=== PATIENT | female | born 1945 | race Caucasian/White ===

== ENCOUNTER 2018-10-27 05:35 | Day surgery (SDC) | payer OTHER ==
[2018-10-25 15:42] VITALS: BMI 29.8
[2018-10-27] MEDS ORDERED: MIDAZOLAM HCL 2 MG/2 ML SINGLE DOSE VIAL ONE (12:25)
[2018-10-27] MEDS ORDERED: PROPOFOL 20 ML ONE (12:25)
[2018-10-27] MEDS ORDERED: LIDOCAINE HCL/PF 2% SDV 5ML VIAL ONE (12:28)
[2018-10-27] MEDS ORDERED: ceFAZolin SODIUM 1 GM VIAL ONE (12:39)
[2018-10-27] MEDS ORDERED: SODIUM CHLORIDE 0.9% P/F 10 ML VIAL IJ ONE (12:39)
[2018-10-27] MEDS ORDERED: ceFAZolin SODIUM 1 GM VIAL IVPB ONE (12:42)
[2018-10-27] MEDS ORDERED: DEXAMETHASONE SOD PHOSPHATE 4 MG/1 ML VIAL ONE (12:45)
[2018-10-27] MEDS ORDERED: oxyCODONE HCL 5 MG TABLET PO PRN (13:10)
[2018-10-27] MEDS ORDERED: PROMETHAZINE HCL 25 MG/1 ML VIAL IVPB PRN (13:11)
[2018-10-27] MEDS ORDERED: ONDANSETRON 4 MG/2 ML VIAL IVPUSH PRN (13:11)
--- NOTE | 2018-10-27 13:12 | OP ---
Operative Note - Note: Operative Date: 10/27/18 Pre-Operative Diagnosis: bladder tumor Operation: TURBT Post-Operative Diagnosis: Same as Pre-op Surgeon: Juan Galvin Anesthesia: General Specimens Removed: bladder tumor Drains & Tubes with Location: 20fr perry Operative Report Dictated: Yes
[2018-10-27] MEDS ORDERED: DEXTROSE 5%-0.45% SALINE 1,000 ML IV SCH (13:15)
[2018-10-27] MEDS ORDERED: LACTATED RINGERS SOLUTION 1,000 ML IV SCH (13:15)
--- NOTE | 2018-10-27 13:38 | OP ---
DATE OF OPERATION: 10/27/2018 PREOPERATIVE DIAGNOSIS: Bladder tumor. POSTOPERATIVE DIAGNOSIS: Bladder tumor. PROCEDURE: Transurethral resection of bladder tumor. SURGEON: Rebecca Jenkins MD INDICATION: Patient is a 73-year-old female noted to have a left-sided bladder tumor and noted on office cystoscopy for workup of hematuria. This was confirmed with CAT scan. She is taken to the OR for resection. Risks, benefits, and alternatives discussed. After informed consent was obtained, patient was taken to the OR, placed supine on the table. After cardiac monitoring had been administered, general anesthesia was then established. She was prepped and draped in dorsal lithotomy position. The resectoscope with the visual obturator was inserted into the urethra and into the bladder without difficulty. A medium-size papillary tumor seen overlying the left side of the bladder at the trigone and engulfing the left ureteral orifice. This tumor, then using bipolar cautery, was resected in its entirety, and the specimen sent to Pathology for analysis. The base of the tumor was fulgurated. Care was taken to minimize the amount of fulguration around the ureteral orifice to minimize scar formation. At the end of the procedure, efflux was seen from the left ureteral orifice as well as the right. No other tumors were noted. All the tumor chips were removed with the Truverisik evacuator, sent to Pathology for analysis. Resectoscope was then removed, and a 20-[place] Guthrie was then placed to straight drainage. [place]-tinged urine retrieved. Patient was then awoken from anesthesia and transferred to recovery room in stable condition. There were no complications. Estimated blood loss: Minimal. REBECCA JENKINS M.D. [id number]
[2018-10-27 16:10] VITALS: BP 117/60; PULSE 78; TEMP 97.9
--- NOTE | 2018-10-28 16:13 | PATH ---
Surgical Pathology Report Patient Name: AMANDO BADILLO [facility]. Rec. #: [id number] /Age/Gender: 1945 (Age: 73) / F Account: [id number] Location: [facility] Taken: 10/27/2018 Received: 10/27/2018 Reported: 10/28/2018 Physicians: Juan Galvin M.D. Specimen(s) Received BLADDER TUMOR Clinical History Bladder mass Final Diagnosis BLADDER TUMOR, TRANSURETHRAL RESECTION OF BLADDER TUMOR: LOW GRADE PAPILLARY UROTHELIAL CARCINOMA, NON- INVASIVE. NO MUSCULARIS PROPRIA IDENTIFIED. NO FLAT CARCINOMA IN SITU (CIS) IDENTIFIED. Comment: Findings discussed with Dr. Aponte. Electronically Signed Ariane See M.D. Gross Description Received in formalin labeled "bladder tumor," is a 2.3 x 1.7 x 0.3 cm aggregate of hung pink soft tissue fragments. The formalin is filtered and the specimen is entirely submitted in one cassette. /10/27/2018 saudi10/27/2018
== END 2018-10-27 16:30 | disposition home or self-care (01) ==
LOC: JASU-SURG 05:35
PROVIDERS: ATTEND Urology
PROC: 0T5B8ZZ Destruction of Bladder, Via Natural or Artificial Opening Endoscopic (ICD-10-PCS; principal; 2018-10-27 12:00)
DX: C67.9 Malignant neoplasm of bladder, unspecified (principal)
CPT/HCPCS: 88305-TC; 94760

== ENCOUNTER 2020-06-27 12:49 | Emergency (ER) | payer OTHER ==
[2020-06-27 12:56] VITALS: BP 142/60; PULSE 78; TEMP 97.8; BMI 29.5
--- NOTE | 2020-06-27 13:35 | PDOC ---
History of Present Illness - General Chief Complaint: Wound Stated Complaint: SENT BY DOC Time Seen by Provider: 06/27/20 13:35 History Source: Patient Exam Limitations: No Limitations - History of Present Illness Initial Comments: 75 year old female with PMH bladder cancer (underwent bladder cancer scrapping by Dr. Landry x10 days ago) presented to ED for right arm swelling, redness, pain x8 days. Pt reported a couple days after he procedure the site at which the IV line was inserted started to become red/warm/swollen. She reported it has continued, prompting her to see Dr. Patino, who advised she come to ED for evaluation. ROS General: denied fever, chills, generalized weakness. HEENT: denied sore throat, rhinorrhea, ear pain. Cardiovascular: denied chest pain, palpitations, syncope, diaphoresis. Respiratory: denied shortness of breath, cough, sputum production, hemoptysis. Gastrointestinal: denied abdominal pain, nausea, vomiting, diarrhea, constipation, blood in stool. Genitourinary: denied dysuria, increased urinary frequency, hematuria, urinary incontinence, flank pain. Back: denied back pain. Musculoskeletal: admitted to arm pain/swelling. Neurological: denied headache, dizziness, numbness, tingling, weakness. Integumentary: admitted to erythema, warmth. denied rash, laceration, abrasion. Hematologic/Lymphatic: denied bruising or bleeding. PE Constitutional: Well-nourished, Well-developed, appearing stated age. HEENT: head is normocephalic, atraumatic. EOMI. PERRLA. Neck: supple. Full ROM. Cardiovascular: regular heart rhythm. Normal S1 and S2. no murmurs. no pericardial friction rub. Respiratory: clear to auscultation bilaterally. no crackles, rhonchi or wheezing. no stridor. Gastrointestinal: soft, flat, nontender. normal bowel sounds. no rebound, guarding, or masses. Extremities: right arm displays swelling & warmth to the peripheral pulses intact and equal. no lower extremity edema noted. Neurological: CN 2-12 grossly intact. moves all four extremities. Psych: awake, alert, oriented x3. follows commands. answers questions appropriately. Past History - Medical History Allergies/Adverse Reactions: Allergies Allergy/AdvReac Type Severity Reaction Status Date / Time Sulfa (Sulfonamide Allergy Verified 06/27/20 12:50 Antibiotics) Home Medications: Ambulatory Orders Amlodipine Besylate [Norvasc -] 10 mg PO DAILY 10/25/18 Metoprolol Succinate 50 mg PO DAILY 10/25/18 Simvastatin 10 mg PO DAILY 10/25/18 Cephalexin [Keflex] 500 mg PO QID 5 Days #20 capsule 06/27/20 Phenazopyridine HCl [Pyridium -] 200 mg PO ASDIR 06/27/20 - Psycho-Social/Smoking History Smoking History: Never smoked Have you smoked in the past 12 months: No - Substance Abuse Hx (Audit-C & DAST Scrn) How often the patient has a drink containing alcohol: Never Score: In Men: 4 or > Positive; In Women: 3 or > Positive: 0 Screen Result (Pos requires Nsg. Audit-10AR): Negative In the last yr the pt used illegal drug/Rx for NonMed reason: No Score: Yes response is considered Positive: 0 Screen Result (Positive result requires Nsg. DAST-10): Negative *Physical Exam - Vital Signs Last Vital Signs Temp Pulse Resp BP Pulse Ox 97.8 F 78 18 142/60 99 06/27/20 12:53 06/27/20 12:53 06/27/20 12:53 06/27/20 12:53 06/27/20 12:53 ED Treatment Course - LABORATORY CBC & Chemistry Diagram: 06/27/20 14:20 06/27/20 14:20 Discharge - Discharge Information Problems reviewed: Yes Clinical Impression/Diagnosis: Cellulitis, Redness and swelling of upper arm Condition: Stable - Admission No - Additional Discharge Information Prescriptions: Cephalexin [Keflex] 500 mg PO QID 5 Days #20 capsule - Follow up/Referral Referrals: Irineo Robins MD [Primary Care Provider] - - Patient Discharge Instructions Patient Printed Discharge Instructions: DI for Cellulitis -- Adult Additional Instructions: Follow up with your primary care doctor on Wednesday. Your care is not complete until you follow up. Bring all paperwork given to you today to your appointment. I have prescribed you an antibiotic to take for your skin infection, take as advised on label. Do not stop early even if you are feeling better. Return to the ER immediately if the red/swollen area is increasing, you have fevers/chills/sweats, chest pain, shortness of breath, nausea, vomiting, or any other new, worsening or concerning symptoms. Drink lots of water. - Post Discharge Activity
--- NOTE | 2020-06-27 14:28 | PDOC ---
Attending Attestation - Resident Resident Name: Mikki Hansen - ED Attending Attestation I have performed the following: I have examined & evaluated the patient, The case was reviewed & discussed with the resident, I agree w/resident's findings & plan, Exceptions are as noted - HPI HPI: 06/27/20 14:24 75y F Discharge - Follow up/Referral Referrals: Irineo Robins MD [Primary Care Provider] - - Patient Discharge Instructions - Post Discharge Activity
[2020-06-27 14:55] LABS: BASO % 0.4 % (0-2.0); HEMATOCRIT 44.8 % (32.4-45.2); HEMOGLOBIN 14.5 GM/dL (10.7-15.3); MCH 30.3 pg (25.7-33.7); MCHC 32.3 g/dl (32.0-36.0); MEAN CELL VOLUME 93.8 fl (80-96); MEAN PLT VOLUME 11.1 fl (7.5-11.1); NEUT % 66.6 % (42.8-82.8); PLATELET COUNT 206 K/MM3 (134-434); RBC 4.78 M/mm3 (3.60-5.2); RDW 13.7 % (11.6-15.6); WHITE BLOOD COUNT 8.8 K/mm3 (4.0-10.0)
[2020-06-27 15:02] LABS: INR 0.91 (0.83-1.09); PROTHROMBIN TIME (PATIENT) 10.7 SEC (9.7-13.0)
[2020-06-27 15:05] LABS: ACTIVATED PTT 30.6 SECONDS (25.2-36.5)
[2020-06-27] MEDS ORDERED: CEPHALEXIN MONOHYDRATE 500 MG CAPSULE (UD) PO ONE (15:10)
[2020-06-27 15:39] LABS: ALBUMIN 3.9 g/dl (3.4-5.0); BILIRUBIN,TOTAL 0.5 mg/dL (0.2-1); BLOOD UREA NITROGEN 15.3 mg/dL (7-18); CALCIUM 9.6 mg/dL (8.5-10.1); POTASSIUM 4.4 mmol/L (3.5-5.1); TOT PROT 7.6 g/dl (6.4-8.2)
--- NOTE | 2020-07-22 07:27 | PDOC ---
Documentation entered by Gavino Hadley SCRIBE, acting as scribe for Bg Garcia MD. Bg Garcia MD: This documentation has been prepared by the moibe, Gavino Hadley SCRIBE, under my direction and personally reviewed by me in its entirety. I confirm that the documentation accurately reflects all work, treatment, procedures, and medical decision making performed by me. Attending Attestation - Resident Resident Name: Mikki Hansen - ED Attending Attestation I have performed the following: I have examined & evaluated the patient, The case was reviewed & discussed with the resident, I agree w/resident's findings & plan, Exceptions are as noted - HPI HPI: 06/27/20 14:28 75y F hx of bladder ca sp bladder scraping approx 10 days ago, presents with R arm swelling x8d. Pt reports some redness several days after an IV was place in the area and was sent to the ED by her PMD for evaluation. Denies any other sympoms , Nausea, vomiting, generalized weakness, numbness, tingling, weakness. No discharge. She denies other symptoms including chest pain, shortness of breath, abdominal pain, leg swelling - Physicial Exam PE: 06/27/20 13:54 GENERAL: The patient is awake, alert, and fully oriented, Nontoxic - in no acute distress. RUE: noted for erythema/induration w/o flcutuance of medial aspec tof R elbow. midly warm to touch. - Medical Decision Making 06/27/20 15:05 ddx - cellulitis vs abscess will obtina blood work and soft tissue US abx will reassess, potential for out pt treatment 06/27/20 16:05 labs reviewed no leukocytosis no signs of collection on US will dc with abx for cellulitis outpt fu with PMD return precautions were discussed Discharge - Discharge Information Problems reviewed: Yes Clinical Impression/Diagnosis: Redness and swelling of upper arm Cellulitis Qualifiers: Site of cellulitis: extremity Site of cellulitis of extremity: upper extremity Laterality: right Qualified Code(s): L03.113 - Cellulitis of right upper limb Condition: Stable Disposition: HOME - Additional Discharge Information Prescriptions: Cephalexin [Keflex] 500 mg PO QID 5 Days #20 capsule - Follow up/Referral Referrals: Irineo Robins MD [Primary Care Provider] - - Patient Discharge Instructions Patient Printed Discharge Instructions: DI for Cellulitis -- Adult Additional Instructions: Follow up with your primary care doctor on Wednesday. Your care is not complete until you follow up. Bring all paperwork given to you today to your appointment. I have prescribed you an antibiotic to take for your skin infection, take as advised on label. Do not stop early even if you are feeling better. Return to the ER immediately if the red/swollen area is increasing, you have fevers/chills/sweats, chest pain, shortness of breath, nausea, vomiting, or any other new, worsening or concerning symptoms. Drink lots of water. - Post Discharge Activity
== END 2020-06-27 16:15 | disposition home or self-care (01) ==
LOC: SUPCPDRO 12:49 → JER 12:49
DX: L03.113 Cellulitis of right upper limb (principal)
CPT/HCPCS: 36415; 76882-TC-RT; 80053; 85025; 85610; 85730; 99285-25

== ENCOUNTER 2022-04-07 11:00 | Emergency (ER) | payer OTHER ==
[2022-04-07 11:14] VITALS: BMI 28.5
[2022-04-07] MEDS ORDERED: BEBTELOVIMAB (EUA) 175 MG/2 ML VIAL IVPUSH ONE (12:10)
[2022-04-07 14:22] VITALS: BP 113/62; PULSE 74; TEMP 98.3
== END 2022-04-07 14:30 | disposition home or self-care (01) ==
LOC: JCOVINFU 11:00
PROC: 3E033GC Introduction of Other Therapeutic Substance into Peripheral Vein, Percutaneous Approach (ICD-10-PCS; principal; 2022-04-07)
DX: U07.1 COVID-19 (principal)
CPT/HCPCS: 96374; 99284-25; M0222; Q0222

== ENCOUNTER 2022-09-22 15:43 | Emergency (ER) | payer OTHER ==
[2022-09-22 16:13] VITALS: BP 138/82; PULSE 87; RESP 16; TEMP 98.6; BMI 28.7
== END 2022-09-22 18:40 | disposition home or self-care (01) ==
LOC: FER 15:43
DX: M79.89 Other specified soft tissue disorders (principal)
CPT/HCPCS: 93971-TC; 99283-25

== ENCOUNTER 2023-03-03 04:17 | Day surgery (SDC) | payer OTHER ==
[2023-03-02 15:22] VITALS: BMI 30.4
[2023-03-03 08:42] VITALS: TEMP 97.5
[2023-03-03 09:43] VITALS: PULSE 67
[2023-03-03 09:51] VITALS: BP 139/68; RESP 17
== END 2023-03-03 09:43 | disposition home or self-care (01) ==
LOC: JASU-ENDO 04:17
PROVIDERS: ATTEND Internal Medicine Gastroenterology
PROC: 0DB68ZX Excision of Stomach, Via Natural or Artificial Opening Endoscopic, Diagnostic (ICD-10-PCS; 2023-03-03)
PROC: 0DB28ZX Excision of Middle Esophagus, Via Natural or Artificial Opening Endoscopic, Diagnostic (ICD-10-PCS; 2023-03-03)
PROC: 0DB48ZX Excision of Esophagogastric Junction, Via Natural or Artificial Opening Endoscopic, Diagnostic (ICD-10-PCS; 2023-03-03)
PROC: 0DJD8ZZ Inspection of Lower Intestinal Tract, Via Natural or Artificial Opening Endoscopic (ICD-10-PCS; 2023-03-03)
PROC: 0DB98ZX Excision of Duodenum, Via Natural or Artificial Opening Endoscopic, Diagnostic (ICD-10-PCS; principal; 2023-03-03 08:00)
DX: Z12.11 Encounter for screening for malignant neoplasm of colon (principal); K57.30 Diverticulosis of large intestine without perforation or abscess without bleeding; K22.2 Esophageal obstruction; K44.9 Diaphragmatic hernia without obstruction or gangrene; K21.00 Gastro-esophageal reflux disease with esophagitis, without bleeding; K29.50 Unspecified chronic gastritis without bleeding
CPT/HCPCS: 43239; G0121; 88305-TC; 88342-TC